=== PATIENT | female | born 1955 | race Caucasian/White ===

== ENCOUNTER 2018-03-14 11:09 | Emergency (ER) | payer MEDICARE, OTHER ==
[2018-03-14 11:55] VITALS: BP 136/78
--- NOTE | 2018-03-14 12:08 | UC ---
Complaint Female HPI - HPI Summary HPI Summary: Patient presents emergency Department with 36 hours of dysuria frequency and hesitancy. Patient denies nausea vomiting. Patient denies back pain. Patient denies fevers or chills. Patient had a UTI approximately 6 months ago. Patient denies any vaginal discharge, itching, rash or lesions. No odor. Patient has not taken anything to try treatment discomfort. Patient is not a diabetic. Medications reviewed this visit. - History Of Current Complaint Chief Complaint: [facility] Stated Complaint: URINARY Time Seen by Provider: 03/14/18 12:05 Pain Intensity: 0 - Allergies/Home Medications Allergies/Adverse Reactions: Allergies Allergy/AdvReac Type Severity Reaction Status Date / Time prednisone Allergy Oral Verified 03/14/18 11:44 Blisters pregabalin [From Lyrica] Allergy Feet Verified 03/14/18 11:44 Swelling Home Medications: Home Medications Aspirin EC TAB* [Ecotrin EC Low Dose 81 MG*] 81 mg PO DAILY 03/14/18 [History Confirmed 03/14/18] Cholecalciferol TAB* [Vitamin D TAB*] 2,000 units PO DAILY 03/14/18 [History Confirmed 03/14/18] Gabapentin CAP(*) [Neurontin 300 CAP(*)] 300 mg PO TID PRN 03/14/18 [History Confirmed 03/14/18] Hydrocodone/Acetamin 10/325(NF [[place] 10/325 (NF)] 1 tab PO Q6H 03/14/18 [ History Confirmed 03/14/18] Hydroxychloroquine TAB* [Plaquenil TAB*] 200 mg PO BID 03/14/18 [History Confirmed 03/14/18] Lidocaine PATCH 5%* [Lidoderm 5% Patch*] 1 patch TRANSDERM DAILY PRN 03/14/18 [ History Confirmed 03/14/18] Liraglutide (NF) [Victoza (NF)] 0.6 mg SUBCUT DAILY 03/14/18 [History Confirmed 03/14/18] Metaxalone TAB* [Skelaxin TAB*] 800 mg PO TID PRN 03/14/18 [History Confirmed ] Metoprolol Succinate XL TAB* [Toprol XL TAB*] 25 mg PO DAILY 03/14/18 [History Confirmed 03/14/18] Pantoprazole TAB (NF) [Protonix TAB (NF)] 40 mg PO DAILY 03/14/18 [History Confirmed 03/14/18] Rosuvastatin (NF) [Crestor (NF)] 5 mg PO DAILY 03/14/18 [History Confirmed 03/14] Venlafaxine CAP (NF) [Effexor CAP (NF)] 150 mg PO DAILY 03/14/18 [History Confirmed 03/14/18] Verapamil HCl [Verapamil HCl ER] 240 mg PO DAILY 03/14/18 [History Confirmed 12/25] Vitamin THERAPEUTIC TAB* [Theragran TAB*] 1 tab PO DAILY 03/14/18 [History Confirmed 03/14/18] metFORMIN* [Glucophage 500 MG TAB *] 500 mg PO DAILY 03/14/18 [History Confirmed 03/14/18] PMH/Surg Hx/FS Hx/Imm Hx Previously Healthy: Yes - Surgical History Surgical History: Yes Surgery Procedure, Year, and Place: Left TKA, 2018, [place]; Parathyroid Tumor, 2016, [place]; L3 L4 Fusion and Spinal Stimulator, 2006, [place] - Family History Known Family History: Positive: Hypertension - Social History Lives: With Family Alcohol Use: None Substance Use Type: None Smoking Status (MU): Former Smoker Type: Cigarettes Length of Time of Smoking/Using Tobacco: 2 PPD x 44 Years Review of Systems Constitutional: Negative Genitourinary: Dysuria, Hematuria, Urgency All Other Systems Reviewed And Are Negative: Yes Physical Exam - Summary Physical Exam Summary: Vital Signs Reviewed: Yes A+Ox3, no distress Eyes: Conjunctiva Clear RUTHIE ENT: Hearing grossly normal neck: supple Respiratory: Positive: No respiratory distress, No accessory muscle use CTA no w /r no increased WOB Cardiovascular: skin color reflect adequate perfusion RRR nl s1 n2 no m/r abd: soft mild suprapubic discomfort no CVA b/l no guarding, no rebound Musculoskeletal Exam: STONE x 4 without difficulty Neurological: Positive: Alert, ambulatory without difficulty Psychological: Positive: Normal Response To Family Skin: Positive: no rash, no ecchymosis Triage Information Reviewed: Yes Vital Signs: Initial Vital Signs Temp 98.1 F 03/14/18 11:41 Pulse 92 03/14/18 11:41 Resp 18 03/14/18 11:41 BP 136/78 03/14/18 11:41 Pulse Ox 99 03/14/18 11:41 Complaint Female Dx - Course Course Of Treatment: Patient presents with 36 hours of dysuria, urgency, and burning. No vaginal discharge itching. No fevers nausea chills vomiting back pain. Patient states she Has been 6 months ago and this feels similar. Patient without any other complaints. Vital signs stable. On exam patient has a fever. Discomfort. Patient's Urine with 3+ leuk esterase. Will send for culture. We'll prescribe Pyridium. Discussed with patient regarding color changes to urine. Patient also started on Keflex. Patient aware culture may receive a call back from care team if something changes. - Differential Dx/Diagnosis Provider Diagnoses: dysuria Discharge - Sign-Out/Discharge Documenting (check all that apply): Patient Departure - Discharge Plan Condition: Stable Disposition: HOME Prescriptions: cephALEXin [Keflex] 500 mg PO BID #14 capsule Phenazopyridine TAB* [Pyridium 100 mg TAB*] 100 mg PO TID PRN #9 tab PRN Reason: burning with urination Patient Education Materials: Urinary Tract Infection in Women (DC) Referrals: Angel Luis ELIZONDO,Betito Paris [Primary Care Provider] - Additional Instructions: - stay well hydrated - drink plenty of non-alcoholic, non caffinated beverages - your urine will be further tested - if you require any changes to your treatment, we will contact you - this usually take 2 days - Take your antibiotics exactly as prescribed until gone - Take pyridium as prescribed for discomfort. This will make your urine blaze orange - this is normal - Okay to alternate ibuprofen (Advil, Motrin) 600mg and Tylenol 1000mg every 3 hours for pain. Take with food - Contact your primary doctor to arrange a follow-up appointment next week. Contact your doctor or return with questions or concern - Billing Disposition and Condition Condition: STABLE Disposition: Home
== END 2018-03-14 12:22 | disposition home or self-care (01) ==
LOC: UCCORT 11:09
DX: R30.0 Dysuria (principal); Z87.440 Personal history of urinary (tract) infections; Z88.8 Allergy status to other drugs, medicaments and biological substances; Z87.891 Personal history of nicotine dependence
CPT/HCPCS: 81003; 87077; 87086; 87186; 99202; G0463